=== PATIENT | female | born 1955 | race Caucasian/White ===

== ENCOUNTER 2018-05-21 02:15 | Emergency (ER) | payer OTHER ==
[2012-12-11 02:58] VITALS: BP 180/90
[2018-05-21] MEDS ORDERED: Sodium Chloride 0.9% 1000 ML 1,000 ML IV ONE (02:16)
[2018-05-21] MEDS ORDERED: Cordarone 150 MG/3 ML Injection IV ONE (02:16)
[2018-05-21] MEDS ORDERED: EPINEPHRINE ABBOJECT 1 MG IV ONE (02:16)
[2018-05-21 02:49] LABS: Granulocyte Absolute (ANC) 10.73 (1.4-6.9); Hematocrit 38.8 % (35-47); Hemoglobin 10.1 gm/dl (12.0-16.0); Mean Cell Volume 93.9 fl (78-100); Mean Platelet Volume 10.1 fl (6-9.5); Platelet Count 272 K/mm3 (150-450); Red Blood Count 4.13 M/mm3 (4.1-5.4); Red Cell Distribution Width 17.1 % (11.5-14.0); White Blood Count 22.3 K/mm3 (4.0-10.5)
[2018-05-21 02:50] LABS: Mean Corpuscular Hemoglobin 24.4 pg (26-32)
--- NOTE | 2018-05-21 03:02 | ERPHSYRPT ---
- History of Present Illness Time Seen by Provider: 05/21/18 02:15 Source: EMS Physician History: 62-year-old white female brought by medics with CPR in progress, Patient apparently had exhibited seizure-like activity and apparently became unresponsive at home CPR was begun and medics were summoned. On arrival medics state patient with an agonal heart rate which shows a changed to asystole patient received approximately 4 doses of epinephrine prior to arrival received CPR and Marvin tube was placed. On arrival patient with Marvin tube in place there was blood in the Marvin tube patient had breath sounds with bagging. Patient with asystole on arrival patient arrived at 0 212 patient was seen on arrival. CPR was begun as well as epinephrine multiple doses per ACLS protocol. Marvin tube was reviewed removed in patient was intubated by respiratory. Patient with bilateral breath sounds with bag ventilation through the ET tube. Patient was noted have an Accu-Chek of 294 patient did go into the PDA after 2 doses of epinephrine CPR was continued to she received 4 more doses of epinephrine Patient did have a brief episode during which she return to pulse and had a palpable pulse but then quickly degenerated down into V. fib she was given defibrillation she went return to PDA she was given amiodarone CPR was continued patient return to PDA. At 2:48 AM code was canceled. Patient with pupils fixed and dilated, absent corneal reflex, no response to pain, absent pulse, absent respirations. Timing/Duration: today (patient apparently unresonsive for greater than 30 minutes prior to arrival) Severity: severe Modifying Factors: Improves With: other (CPR in progress patient unresponsive) - Review of Systems Constitutional: No Fever, No Chills Eyes: No Symptoms Ears, Nose, & Throat: No Symptoms Respiratory: No Cough, No Dyspnea Cardiac: Other (cardiac and respiratory arrest) Abdominal/Gastrointestinal: No Abdominal Pain, No Nausea, No Vomiting, No Diarrhea Genitourinary Symptoms: No Dysuria Musculoskeletal: No Back Pain, No Neck Pain Skin: No Rash Neurological: No Dizziness, No Focal Weakness, No Sensory Changes Psychological: No Symptoms Endocrine: No Symptoms All Other Systems: Unable due to condition (unable to obtain review of systems from patient CPR in progress patient in asystole. history) - Past Medical History Pertinent Past Medical History: Yes Cardiac History: Coronary Artery Disease Respiratory History: COPD (he is to call the corner) Endocrine Medical History: Diabetes Type II - Nursing Vital Signs Nursing Vital Signs: Initial Vital Signs Pulse Rate 0 L 05/21/18 02:16 Blood Pressure 0/0 05/21/18 02:16 - Physical Exam General Appearance: other (elderly-appearing white female unresponsive Marvin tube in place.) Eye Exam: other (pupils fixed, absent corneal reflex) Ears, Nose, Throat Exam: other (patient intubated with Marvin tube) Neck Exam: normal inspection, non-tender, supple, full range of motion Respiratory Exam: other (bilateral breath sounds with bagging through both Marvin tube and later ET tube) Cardiovascular Exam: other (absent pulse) Gastrointestinal/Abdomen Exam: other (abdomen mildly distended) Back Exam: normal inspection, normal range of motion, No CVA tenderness, No vertebral tenderness Extremity Exam: normal inspection, normal range of motion, pelvis stable Neurologic Exam: other (patient unresponsive to pain, pupils fixed and dilated, absent corneal reflex. GCS equals 3) Skin Exam: pale SpO2 Interpretation: hypoxic (82%) Ordered Tests: Active Orders 24 hr Category Date Time Status CBC W DIFF Stat Lab 05/21/18 02:43 Completed CMP Stat Lab 05/21/18 02:43 Completed Manual Differential NC Stat Lab 05/21/18 02:43 Completed TROPONIN Stat Lab 05/21/18 02:43 Completed Intubate Patient STAT RT 05/21/18 02:23 Active Ventilator Management STAT RT 05/21/18 02:29 Active Lab/Rad Data: Laboratory Result Diagrams 05/21/18 02:43 05/21/18 02:43 Laboratory Results 05/21/18 05/21/18 Range/Units 02:43 02:43 WBC 22.3 H (4.0-10.5) K/mm3 RBC 4.13 (4.1-5.4) M/mm3 Hgb 10.1 L (12.0-16.0) gm/dl Hct 38.8 (35-47) % MCV 93.9 (78-100) fl MCH 24.4 L (26-32) pg MCHC 26.0 L (32-36) g/dl RDW 17.1 H (11.5-14.0) % Plt Count 272 (150-450) K/mm3 MPV 10.1 H (6-9.5) fl Absolute Granulocytes 10.73 H (1.4-6.9) Segmented Neutrophils 45 (36.0-66.0) % Band Neutrophils 5 H (0.0-2.0) % Lymphocytes (Manual) 41 (24-44) % Monocytes (Manual) 2 (0.0-12.0) % Metamyelocytes 2 % Atypical Lymphocytes 5 % Platelet Estimate NORMAL (NORMAL) RBC Morphology NORMAL Sodium 137 (137-145) mmol/L Potassium 4.6 (3.5-5.1) mmol/L Chloride 88 L (98-107) mmol/L Carbon Dioxide 29 (22-30) mmol/L Anion Gap 25.3 H (5-15) MEQ/L BUN 19 H (7-17) mg/dL Creatinine 0.86 (0.52-1.04) mg/dL Estimated GFR > 60.0 ML/MIN Glucose 173 H (74-106) mg/dL Calcium 9.9 (8.4-10.2) mg/dL Total Bilirubin 0.20 (0.2-1.3) mg/dL AST 124 H (14-36) U/L ALT 49 H (0-35) U/L Alkaline Phosphatase 133 H (38-126) U/L Troponin I 0.058 H* (0.000-0.034) ng/mL Serum Total Protein 5.5 L (6.3-8.2) g/dL Albumin 3.2 L (3.5-5.0) g/dL - Progress Progress: unchanged Progress Note: 05/21/18 03:06 This is a 62-year-old white female with history of diabetes, COPD, atherosclerotic coronary artery disease who is noted to have shaking and seizure -like activity at home she was then became unresponsive and CPR was started at home. Medics were summoned medics arrived patient with initially agonal heartbeat which went to asystole. Marvin tube was placed by the medics and patient received 4 doses of epinephrine along with CPR. On arrival patient is in asystole she is unresponsive pupils are fixed there is absent corneal reflex patient has no active respiratory effort there is bilateral breath sounds with bag ventilation there is appendectomy and heart rate patient was out response to pain. Patient is given multiple doses of epinephrine she initially started out in asystole she went to PMD she had a brief period where she returned a pulse she then went into ventricular fibrillation she was given defibrillation and amiodarone 300 mg she went back into [facility] where she remained she had no response to resuscitative efforts other than a brief period of return to pulse. Patient's code was began at 2:12 AM Patient's code was discontinued at 2:48 AM Patient received resuscitation via ACLS protocol patient received 7 doses of epinephrine here in the emergency room She had received 4 doses of epinephrine prior to arrival. Patient was defibrillated with 200 J 1 Patient received amiodarone 300 mg IV. Patient's Accu-Chek was 294 on arrival. Patient had IV normal saline started on arrival. Patient with a interosseus placed in her right tibia by the medics prior to arrival. It should be noted patient did have some blood in her Marvin tube. Marvin tube was replaced by respiratory with the regular ET tube. Impression cardiac and respiratory arrest 05/21/18 03:16 The corner, Shandra Miranda, was contacted by the housetrailer servicer. Patient's case was discussed with her. She has agreed to sign the certificate. 05/21/18 03:30 - Departure Time of Disposition: 03:10 Departure Disposition: Clinical Impression: cardiac and respiratory arrest Condition: Critical Care Time: Yes Critical Care Time(excluding separately billable procedures): 30-74 minutes Referrals: Provider,Unknown [NON-STAFF PHY W/O PRIVILEGES] -
[2018-05-21 03:11] LABS: ALBUMIN 3.2 g/dL (3.5-5.0); ALKALINE PHOSPHATASE 133 U/L (38-126); ANION GAP 25.3 MEQ/L (5-15); BLOOD UREA NITROGEN 19 mg/dL (7-17); CHLORIDE 88 mmol/L (98-107); Calcium 9.9 mg/dL (8.4-10.2); Carbon Dioxide 29 mmol/L (22-30); Creatinine 1 0.86 mg/dL (0.52-1.04); Glucose 173 mg/dL (74-106); Potassium 4.6 mmol/L (3.5-5.1); SGOT/AST 124 U/L (14-36); SGPT/ALT 49 U/L (0-35); SODIUM 137 mmol/L (137-145); Total Protein 5.5 g/dL (6.3-8.2)
[2018-05-21 03:32] LABS: TROPONIN 0.058 ng/mL (0.000-0.034)
[2018-05-21 04:23] LABS: ATYPICAL LYMPHS 5 %; BAND 5 % (0.0-2.0); Lymphocytes 41 % (24-44); Metamyelocyte 2 %; Monocyte 2 % (0.0-12.0); Neutrophils 45 % (36.0-66.0); Total Cells Counted 100
[2018-05-21 04:24] LABS: Platelet Estimate NORMAL (NORMAL)
[2018-05-21 04:26] VITALS: BP 0/0; PULSE 0
== END 2018-05-21 04:30 | disposition expired ==
LOC: EDBD 02:15 → ED 02:15 → MERGE 02:15 → ED 04:30
DX: I46.9 Cardiac arrest, cause unspecified (principal); R09.2 Respiratory arrest; J44.9 Chronic obstructive pulmonary disease, unspecified; I25.10 Atherosclerotic heart disease of native coronary artery without angina pectoris; E11.9 Type 2 diabetes mellitus without complications
CPT/HCPCS: 31500; 36415; 80053; 84484; 85025; 94002; 94799; 99284; 99291; J0171; J0282